=== PATIENT | female | born 2000 ===

== ENCOUNTER 2023-05-12 20:33 | Outpatient (REF) | payer OTHER, SELFPAY ==
[2023-05-16 12:08] LABS: Age Gdln ACOG Testing Note (.); IGP, rfx Aptima HPV ASCU Note (.)
== END 2023-05-12 20:34 | disposition home or self-care (01) ==
LOC: LAB 20:33
PROVIDERS: Visit Provider Obstetrics & Gynecology
DX: Z12.4 Encounter for screening for malignant neoplasm of cervix (principal); R30.0 Dysuria
CPT/HCPCS: 87086; 87150; 87186; G0145